=== PATIENT | male | born 1970 | race Two or more races ===

== ENCOUNTER 2024-10-25 14:20 | Outpatient (CLI) | payer SELFPAY | END 2024-10-25 14:21 | disposition home or self-care (01) | LOC: CSHCT 14:20 | PROVIDERS: ATTEND Internal Medicine Cardiovascular Disease | DX: E78.49 Other hyperlipidemia (principal); I25.10 Atherosclerotic heart disease of native coronary artery without angina pectoris; I25.84 Coronary atherosclerosis due to calcified coronary lesion | CPT/HCPCS: 75571 ==